=== PATIENT | female | born 2000 | race Caucasian/White ===

== ENCOUNTER 2021-01-17 22:02 | Emergency (ER) | payer MEDICAID ==
[~2021-01-17] VITALS: Ht 162.6 cm; Wt 52.6 kg
[2021-01-17 22:05] VITALS: BP 140/90
--- NOTE | 2021-01-17 22:08 | NUR ---
TO LOBBY A/W BED AMBULATORY
--- NOTE | 2021-01-18 01:15 | NUR ---
CALLLED PATIENT BACK WITH NO RESPONSE.
--- NOTE | 2021-01-18 01:30 | NUR ---
CALLED PATIENT BACK WITH NO RESPONSE.
--- NOTE | 2021-01-18 01:37 | NUR ---
PATIENT LEFT WITHOUT BEING SEEN BY DR. BAILON. NO FURTHER CARE PROVIDED FOR PATIENT.
== END 2021-01-18 01:37 | disposition left against medical advice (07) ==
LOC: MED 22:02
DX: N93.9 Abnormal uterine and vaginal bleeding, unspecified (principal)
CPT/HCPCS: 99281